=== PATIENT | female | born 1950 | race Caucasian/White ===

== ENCOUNTER 2016-03-09 02:02 | Emergency (ER) | payer MEDICARE, OTHER ==
[~2016-03-09] VITALS: Ht 167.6 cm; Wt 113.4 kg
[~2016-03-09 02:02] MED LIST: AMLO1CAP8 PO; CARV6.252 PO; DONE10TA44 PO; GABA600T2 PO; HYDR-3204 PO; MECL-102 PO; NAPR500T6 PO; TOPI50TA PO; ZOLP10TA2 PO; [UNRECOGNIZED DRUG - CODE] PO
[2016-03-09] MEDS ORDERED: ONDANSETRON HCL/PF 4 MG/2 ML VIAL ONE (02:41)
[2016-03-09] MEDS ORDERED: IV SET PRIMARY 1 EA INFUS.SET MC ONE ×2 (02:42→04:24)
[2016-03-09] MEDS ORDERED: IV NS 0.9% 1,000 ML ONE (02:42)
[2016-03-09] MEDS ORDERED: ONDANSETRON HCL/PF 4 MG/2 ML VIAL IVP ONE (03:00)
[2016-03-09] MEDS ORDERED: IV NS 0.9% 1,000 ML BAG IV ONE (03:00)
[2016-03-09 03:09] LABS: BASOPHILS % (AUTO) 0.4 % (0.0-2.0); DIFF TOTAL % 100 %; EOSINOPHILS % (AUTO) 0.5 % (0.0-6.0); HEMATOCRIT 37 % (33-45); HEMOGLOBIN 12.2 g/dL (11.5-14.8); LYMPHOCYTES # (AUTO) 1.1 /CMM (0.8-4.8); LYMPHOCYTES % (AUTO) 39.1 % (20.0-44.0); MEAN CORPUSCULAR HEMOGLOBIN 28 PG (26.0-33.0); MEAN CORPUSCULAR HGB CONC 33 g/dl (31.0-36.0); MEAN CORPUSCULAR VOLUME 84 fL (82-100); MONOCYTES # (AUTO) 0.3 /CMM (0.1-1.30); MONOCYTES % (AUTO) 11.6 % (2.0-12.0); NEUTROPHILS # (AUTO) 1.4 /CMM (1.8-8.9); NEUTROPHILS % (AUTO) 48.4 % (43.0-81.0); PLATELET COUNT (AUTO) 203 /CMM (150-450); RED BLOOD CELL COUNT(AUTO) 4.38 MIL/uL (4.0-5.2); WHITE BLOOD COUNT (AUTO) 2.9 K/uL (4.3-11.0)
[2016-03-09 03:16] LABS: CALCIUM, SERUM 8.8 mg/dL (8.5-10.1); CREATININE 0.9 mg/dL (0.6-1.3); POTASSIUM 3.8 mmol/L (3.5-5.1)
[2016-03-09 03:22] LABS: ALBUMIN 3.4 g/dL (3.4-5.0); BILIRUBIN,DIRECT 0.1 mg/dL (0.0-0.2); BILIRUBIN,TOTAL 0.3 mg/dL (0.2-1.0); INDIRECT BILIRUBIN 0.2 mg/dL (0.0-1.1); TOTAL PROTEIN, SERUM 7.9 g/dL (6.4-8.2)
[2016-03-09 03:32] LABS: LYMPHOCYTES % (MANUAL) 47 % (16-48); PLATELET ESTIMATE ADEQUATE
[2016-03-09 03:33] LABS: RBC MORPHOLOGY COMMENT NORMAL RBC MORPH
[2016-03-09] MEDS ORDERED: IV NS 0.9% 500 ML IV ONE (04:24)
[2016-03-09 04:26] LABS: KETONES,URINE 2+ (NEGATIVE); LEUKOCYTE ESTERASE ,URINE NEGATIVE (NEGATIVE)
[2016-03-09] MEDS ORDERED: IV NS 0.9% 500 ML BAG IV ONE (04:30)
[2016-03-09 04:34] LABS: ADD UA MICROSCOPIC YES
[2016-03-09 04:37] VITALS: BP 133/75
[2016-03-09 04:39] LABS: ADD URINE CULTURE NO; RBC,URINE 0-2 /HPF (0-2); WBC,URINE 0-2 /HPF (0-3)
== END 2016-03-09 05:15 | disposition home or self-care (01) ==
LOC: ER 02:05
DX: R11.2 Nausea with vomiting, unspecified (principal); I10 Essential (primary) hypertension; I48.91 Unspecified atrial fibrillation
CPT/HCPCS: 36415; 80048; 80076; 81001; 85025; 96361; 96374; 99284; A4606; J2405; J7030; J7040; 81000-TC; Z7610

== ENCOUNTER 2017-06-09 00:06 | Emergency (ER) | payer MEDICARE, OTHER ==
[~2017-06-09] VITALS: Ht 167.6 cm; Wt 89.8 kg
[~2017-06-09 00:06] MED LIST changes: +RANI-551 PO; -TOPI50TA PO; +TOPI50TA24 PO; -[UNRECOGNIZED DRUG - CODE] PO
--- NOTE | 2017-06-09 00:18 | NUR ---
PT TO ER BED 8. BIBFAMILT C/O CP WITH SOB X 2 HOURS. PT PLACED IN GOWN AND ON FLOWER STRIPPER. VSS/RESP EVEN UNLABORED/NAD NOTED/SKIN WARM AND DRY/DENIES N-V-D/AFEBRILE/AOX4. MD AT BEDSIDE FOR EVAL.
--- NOTE | 2017-06-09 00:19 | NUR ---
EMT AT BEDSIDE FOR EKG.
[2017-06-09] MEDS ORDERED: FAMOTIDINE (20 MG) 20 MG TABLET PO ONE (00:30)
[2017-06-09] MEDS ORDERED: DICYCLOMINE HCL 10 MG CAPSULE PO ONE ×2 (00:30→00:47)
[2017-06-09] MEDS ORDERED: NITROGLYCERIN PACKET 1 GM PACKET TD ONE (00:30)
[2017-06-09] MEDS ORDERED: ASPIRIN 81 MG TAB.CHEW PO ONE (00:30)
[2017-06-09] MEDS ORDERED: LIDOCAINE VISCOUS 2% UD 15 ML UDC MM ONE (00:30)
[2017-06-09] MEDS ORDERED: MAG HYDROX/AL HYDROX/SIMETH 30 ML UDC PO ONE (00:30)
[2017-06-09] MEDS ORDERED: NITROGLYCERIN 0.4 MG/TAB BOTTLE SL ONE (00:30)
[2017-06-09] MEDS ORDERED: NITROGLYCERIN 0.4 MG/TAB BOTTLE ONE (00:31)
--- NOTE | 2017-06-09 00:43 | NUR ---
18G IV X 1 ATTEMPT TO R WRIST USING ASEPTIC TECH, BLOOD HANDED OVER TO THE LAB AT THE BEDSIDE. IV FLUSHES EASILY WITH NS, NO S/S INFILTRATION.
[2017-06-09 00:45] LABS: BASOPHILS % (AUTO) 0.7 % (0.0-2.0); EOSINOPHILS % (AUTO) 2.1 % (0.0-6.0); HEMATOCRIT 32 % (33-45); LYMPHOCYTES # (AUTO) 2.4 /CMM (0.8-4.8); LYMPHOCYTES % (AUTO) 39.3 % (20.0-44.0); MEAN CORPUSCULAR HGB CONC 34 g/dl (31.0-36.0); MEAN CORPUSCULAR VOLUME 84 fL (82-100); MONOCYTES # (AUTO) 0.6 /CMM (0.1-1.30); MONOCYTES % (AUTO) 10.1 % (2.0-12.0); NEUTROPHILS % (AUTO) 47.8 % (43.0-81.0); PLATELET COUNT (AUTO) 253 /CMM (150-450); RDW COEFFICIENT OF VARIATION 14.3 (11.5-15.0); RED BLOOD CELL COUNT(AUTO) 3.79 MIL/uL (4.0-5.2); WHITE BLOOD COUNT (AUTO) 6.2 K/uL (4.3-11.0)
[2017-06-09] MEDS ORDERED: FAMOTIDINE (20 MG) 20 MG TABLET ONE (00:47)
[2017-06-09] MEDS ORDERED: MAG HYDROX/AL HYDROX/SIMETH 30 ML UDC ONE (00:47)
[2017-06-09] MEDS ORDERED: LIDOCAINE VISCOUS 2% UD 15 ML UDC ONE (00:47)
[2017-06-09] MEDS ORDERED: NITROGLYCERIN PACKET 1 GM PACKET ONE (00:48)
[2017-06-09] MEDS ORDERED: ASPIRIN 81 MG TAB.CHEW ONE (00:48)
[2017-06-09 00:58] LABS: CALCIUM, SERUM 8.8 mg/dL (8.5-10.1); CARBON DIOXIDE 23 mmol/L (21-32); CHLORIDE 106 mmol/L (98-107); CREATININE 0.9 mg/dL (0.6-1.3); GLUCOSE 124 mg/dL (74-106); POTASSIUM 3.2 mmol/L (3.5-5.1); SODIUM SERUM 141 mmol/L (136-145); UREA NITROGEN, BLOOD 20 mg/dL (7-18)
[2017-06-09 01:01] LABS: D-DIMER 1.23 mg/L(FEU (0.17-0.50); INR 1.01 (0.87-1.13)
[2017-06-09 01:05] LABS: TROPONIN I < 0.017 ng/mL (0.00-0.056)
[2017-06-09 01:12] LABS: ALANINE AMINOTRANSFERASE 26 U/L (12-78); ALBUMIN 3.2 g/dL (3.4-5.0); ALKALINE PHOSPHATASE 61 U/L (46-116); ASPARTATE AMINOTRANSFERASE 19 U/L (15-37); B-TYPE NATRIURETIC PEPTIDE 112 PG/ML (0-125); BILIRUBIN,DIRECT 0.1 mg/dL (0.0-0.2); BILIRUBIN,TOTAL 0.4 mg/dL (0.2-1.0)
--- NOTE | 2017-06-09 01:30 | NUR ---
FAMILY AT BEDSIDE SPEAKING WITH PATIENT. VSS.
[2017-06-09] MEDS ORDERED: ALPRAZOLAM 0.25 MG TABLET PO ONE (02:00)
[2017-06-09] MEDS ORDERED: POTASSIUM CHLORIDE 20 MEQ TAB.PRT.SR PO ONE ×2 (02:00→02:50)
[2017-06-09] MEDS ORDERED: CT SWABBABLE VALVE TRANS SET 1 EA INFUS.SET MC ONE (02:18)
[2017-06-09] MEDS ORDERED: IOHEXOL-350 100 ML VIAL IV ONE (02:18)
[2017-06-09] MEDS ORDERED: IV NS 0.9% 250 ML IV ONE (02:19)
[2017-06-09] MEDS ORDERED: ALPRAZOLAM 0.25 MG TABLET ONE (02:50)
[2017-06-09] MEDS ORDERED: POTASSIUM CHLORIDE 10 MEQ TABLET.SA ONE (02:50)
--- NOTE | 2017-06-09 03:01 | NUR ---
MEDICATED PER MD ORDERS. SON AT BEDSIDE. PT AOX4. VSS.
--- NOTE | 2017-06-09 03:11 | NUR ---
DR SCHWARTZ PAGED PER DR CLEMONS.
[2017-06-09] MEDS ORDERED: HEPARIN SODIUM, PORCINE 5000 UNITS/1 ML VIAL ONE (03:16)
--- NOTE | 2017-06-09 03:26 | NUR ---
Dr koehler paged per dr rondon. Message left.
[2017-06-09] MEDS ORDERED: HEPARIN SODIUM, PORCINE 5000 UNITS/1 ML VIAL IV ONE (03:30)
--- NOTE | 2017-06-09 03:51 | NUR ---
FAMILY AT BEDSIDE. PT RESTING QUIETLY, AROUSES EASILY TO VOICE. VSS.
--- NOTE | 2017-06-09 03:57 | NUR ---
[facility] BED 102
--- NOTE | 2017-06-09 04:33 | NUR ---
Note pamanthony in ED - 06/09/17 at 0434 by SHOBHA Patient does not wish to proceed with medical care recommended by ( ). Patient given information related to possible complications, up to and including , which could occur as a result of leaving the hospital at this time. Patient verbalizes understanding of risks involved due to leaving against medical advice. Patient has signed AMA form.
--- NOTE | 2017-06-09 04:34 | NUR ---
IV removed. Catheter intact and site benign. Pressure and 4x4 applied to site. No bleeding noted. Patient discharged with family to home in stable condition. Written and verbal after care instructions given, instructed not to drive. Patient verbalizes understanding of instruction.
--- NOTE | 2017-06-09 04:34 | NUR ---
Patient does not wish to proceed with medical care recommended by Dr. Soto. Patient given information related to possible complications, up to and including , which could occur as a result of leaving the hospital at this time. Patient verbalizes understanding of risks involved due to leaving against medical advice. Patient has signed AMA form.
[2017-06-09 04:36] VITALS: BP 115/54
== END 2017-06-09 04:37 | disposition left against medical advice (07) ==
LOC: ER 00:10
DX: I26.99 Other pulmonary embolism without acute cor pulmonale (principal); R07.9 Chest pain, unspecified; E66.9 Obesity, unspecified; I10 Essential (primary) hypertension; F41.9 Anxiety disorder, unspecified
CPT/HCPCS: 36415; 71045-TC; 80048-TC; 80076-TC; 83880; 84484-TC; 85025-TC; 85378-TC; 85730-TC; A4606; J1644; J7050; Q9967; Z7610

== ENCOUNTER 2018-04-07 01:37 | Emergency (ER) | payer MEDICARE, OTHER ==
[~2018-04-07] VITALS: Ht 167.6 cm; Wt 90.7 kg
[~2018-04-07 01:37] MED LIST changes: +GABA600T12 PO; -GABA600T2 PO
[2018-04-07] MEDS ORDERED: LORAZEPAM 1 MG TABLET PO ONE (02:00)
[2018-04-07] MEDS ORDERED: LORAZEPAM 1 MG TABLET ONE (02:01)
--- NOTE | 2018-04-07 02:05 | NUR ---
PT BIB SELF. COMP OF HAVING "LOWER EXTREMITY TINGLING". NO SOB NOTED. NO ACUTE DISTRESS AT THIS TIME. PT AOX4. AMBULATORY W.STEADY GAIT. AWAITING MD CHOW.
[2018-04-07 03:04] VITALS: BP 144/68
== END 2018-04-07 03:04 | disposition home or self-care (01) ==
LOC: ER 01:41
DX: F41.9 Anxiety disorder, unspecified (principal); I48.91 Unspecified atrial fibrillation; I10 Essential (primary) hypertension; E66.9 Obesity, unspecified; Z86.711 Personal history of pulmonary embolism
CPT/HCPCS: 99284; A4606

== ENCOUNTER 2018-05-30 14:31 | Emergency (ER) | payer MEDICARE, OTHER ==
[~2018-05-30] VITALS: Ht 165.1 cm; Wt 81.6 kg
[2018-05-30 15:19] LABS: BASOPHILS % (AUTO) 0.6 % (0.0-2.0); EOSINOPHILS % (AUTO) 2.3 % (0.0-6.0); HEMATOCRIT 38 % (33-45); HEMOGLOBIN 12.6 g/dL (11.5-14.8); LYMPHOCYTES # (AUTO) 1.9 /CMM (0.8-4.8); LYMPHOCYTES % (AUTO) 33.8 % (20.0-44.0); MEAN CORPUSCULAR HGB CONC 34 g/dl (31.0-36.0); MEAN CORPUSCULAR VOLUME 88 fL (82-100); MONOCYTES # (AUTO) 0.4 /CMM (0.1-1.30); MONOCYTES % (AUTO) 6.9 % (2.0-12.0); NEUTROPHILS # (AUTO) 3.2 /CMM (1.8-8.9); NEUTROPHILS % (AUTO) 56.4 % (43.0-81.0); PLATELET COUNT (AUTO) 253 /CMM (150-450); RED BLOOD CELL COUNT(AUTO) 4.27 MIL/uL (4.0-5.2); WHITE BLOOD COUNT (AUTO) 5.7 K/uL (4.3-11.0)
--- NOTE | 2018-05-30 15:19 | NUR ---
PT REC'D TO ER C/O DIZZY FOR 2 DAYS LEFT AC IV STARTED 20G LABS DRAWN SENT TO LAB
[2018-05-30 15:28] LABS: CREATININE 0.9 mg/dL (0.6-1.3); POTASSIUM 4.1 mmol/L (3.5-5.1)
--- NOTE | 2018-05-30 15:30 | NUR ---
PT SENT TO CT
[2018-05-30] MEDS ORDERED: ACETAMINOPHEN 325 MG TABLET ONE (15:40)
[2018-05-30] MEDS ORDERED: MECLIZINE HCL 25 MG TABLET ONE (15:40)
[2018-05-30] MEDS ORDERED: LORAZEPAM INJ 2 MG/ML VIAL ONE (15:42)
[2018-05-30] MEDS: LORAZEPAM INJ 2 MG/ML VIAL IV ONE (15:51)
[2018-05-30] MEDS: IV NS 0.9% 1,000 ML BAG IV ONE (15:52)
[2018-05-30] MEDS: MECLIZINE HCL 12.5 MG TABLET PO ONE (15:52)
[2018-05-30] MEDS: ACETAMINOPHEN 325 MG TABLET PO ONE (15:52)
--- NOTE | 2018-05-30 15:55 | NUR ---
PT BACK FROM CT MONITORS APPLIED MEDS GIVEN PER M,D
--- NOTE | 2018-05-30 16:55 | NUR ---
PT. VERBALIZED UNDERSTANDING OF AFTERCARE INSTRUCTIONS.IV removed. Catheter intact and site benign. Pressure and 4x4 applied to site. No bleeding noted.Patient discharged to home in stable condition. Written and verbal after care instructions given. Patient verbalizes understanding of instruction.
[2018-05-30 17:00] VITALS: BP 135/80
== END 2018-05-30 17:01 | disposition home or self-care (01) ==
LOC: ER 14:34
DX: S20.212A Contusion of left front wall of thorax, initial encounter (principal); S09.8XXA Other specified injuries of head, initial encounter; H81.399 Other peripheral vertigo, unspecified ear; R51 Headache; R11.0 Nausea; I10 Essential (primary) hypertension; F41.9 Anxiety disorder, unspecified; E66.9 Obesity, unspecified; W18.09XA Striking against other object with subsequent fall, initial encounter; Y93.01 Activity, walking, marching and hiking; Y92.89 Other specified places as the place of occurrence of the external cause; Y99.8 Other external cause status
CPT/HCPCS: 36415; 70450; 71045; 80048; 85025; 93005; 96361; 96374; 99284; J2060; J7030; J8597

== ENCOUNTER 2018-07-27 16:40 | Emergency (ER) | payer MEDICARE, OTHER ==
[~2018-07-27] VITALS: Ht 165.1 cm; Wt 81.6 kg
--- NOTE | 2018-07-27 17:00 | NUR ---
patient came to the ER BIB grand daughter who c/o chest pain, sharp like, radiating to left shoulder and left arm. On room air, breathing evenly and unlabored. Connected to the monitor and pulse ox. kept comfortable, will continue to monitor accordingly.
[2018-07-27] MEDS ORDERED: AMIO200T4 PO (17:13)
[2018-07-27 17:44] LABS: BASOPHILS % (AUTO) 0.3 % (0.0-2.0); EOSINOPHILS % (AUTO) 1.3 % (0.0-6.0); HEMATOCRIT 41 % (33-45); HEMOGLOBIN 14.2 g/dL (11.5-14.8); LYMPHOCYTES % (AUTO) 38.7 % (20.0-44.0); MEAN CORPUSCULAR HGB CONC 35 g/dl (31.0-36.0); MEAN CORPUSCULAR VOLUME 93 fL (82-100); MONOCYTES # (AUTO) 0.6 /CMM (0.1-1.30); MONOCYTES % (AUTO) 7.4 % (2.0-12.0); NEUTROPHILS % (AUTO) 52.3 % (43.0-81.0); PLATELET COUNT (AUTO) 199 /CMM (150-450); RED BLOOD CELL COUNT(AUTO) 4.42 MIL/uL (4.0-5.2); WHITE BLOOD COUNT (AUTO) 7.7 K/uL (4.3-11.0)
[2018-07-27 17:51] LABS: CALCIUM, SERUM 9.6 mg/dL (8.5-10.1); CARBON DIOXIDE 27 mmol/L (21-32); CHLORIDE 107 mmol/L (98-107); GLUCOSE 100 mg/dL (74-106); POTASSIUM 4.2 mmol/L (3.5-5.1); SODIUM SERUM 145 mmol/L (136-145); UREA NITROGEN, BLOOD 25 mg/dL (7-18)
[2018-07-27 18:04] LABS: B-TYPE NATRIURETIC PEPTIDE 149 PG/ML (0-125)
--- NOTE | 2018-07-27 19:19 | NUR ---
report given to yelena HENLEY for estela.
--- NOTE | 2018-07-27 19:24 | NUR ---
LAYING DOWN IN BED . FAMILY AT THE BED SIDE. REPORTED FEELING BETTER. ON CONT. MONITORING. VSS
--- NOTE | 2018-07-27 20:14 | NUR ---
Patient discharged to home in stable condition. Written and verbal after care instructions given. Patient/ family verbalizes understanding of instruction.
[2018-07-27 20:32] VITALS: BP 123/73
== END 2018-07-27 20:33 | disposition home or self-care (01) ==
LOC: ER 16:50
DX: R07.89 Other chest pain (principal); I10 Essential (primary) hypertension; I48.91 Unspecified atrial fibrillation; F41.9 Anxiety disorder, unspecified; E66.9 Obesity, unspecified
CPT/HCPCS: 36415; 71045-TC; 80048-TC; 83880; 84484-TC; 85025-TC; 85730-TC

== ENCOUNTER 2018-11-20 08:44 | Emergency (ER) | payer MEDICARE, OTHER ==
[~2018-11-20] VITALS: Ht 165.1 cm; Wt 88.0 kg
[~2018-11-20 08:44] MED LIST changes: +AMIO200T4 PO; -AMLO1CAP8 PO; +AMLO1CAP92 PO; -CARV6.252 PO; -RANI-551 PO; -TOPI50TA24 PO
--- NOTE | 2018-11-20 08:58 | NUR ---
PT AMBULATORY TO ER BED 09. C/O R SIDED CHEST PAIN R/T RUE, UPPER BACK AND JAW AREA X 1 MONTH, WORSENING. GOWNED AND PLACED ON MONITOR. VSS. AWAITING MD CHOW.
[2018-11-20] MEDS ORDERED: ASPIRIN 325 MG TABLET PO ONE (09:00)
--- NOTE | 2018-11-20 09:01 | NUR ---
DR PLASCENCIA AT BEDSIDE FOR EVAL.
[2018-11-20] MEDS ORDERED: ASPIRIN 325 MG TABLET ONE (09:04)
--- NOTE | 2018-11-20 09:04 | NUR ---
IV LINE STARTED, ,BLOOD DRAWN AND SENT TO LAB.
[2018-11-20 09:12] LABS: BASOPHILS % (AUTO) 0.7 % (0.0-2.0); EOSINOPHILS % (AUTO) 3.2 % (0.0-6.0); HEMATOCRIT 38 % (33-45); HEMOGLOBIN 12.9 g/dL (11.5-14.8); LYMPHOCYTES # (AUTO) 1.9 /CMM (0.8-4.8); LYMPHOCYTES % (AUTO) 32.3 % (20.0-44.0); MEAN CORPUSCULAR HGB CONC 34 g/dl (31.0-36.0); MEAN CORPUSCULAR VOLUME 87 fL (82-100); MONOCYTES # (AUTO) 0.6 /CMM (0.1-1.30); MONOCYTES % (AUTO) 9.9 % (2.0-12.0); NEUTROPHILS # (AUTO) 3.2 /CMM (1.8-8.9); NEUTROPHILS % (AUTO) 53.9 % (43.0-81.0); PLATELET COUNT (AUTO) 236 /CMM (150-450); RED BLOOD CELL COUNT(AUTO) 4.35 MIL/uL (4.0-5.2); WHITE BLOOD COUNT (AUTO) 5.8 K/uL (4.3-11.0)
[2018-11-20 09:22] LABS: CALCIUM, SERUM 8.9 mg/dL (8.5-10.1); CARBON DIOXIDE 27 mmol/L (21-32); CHLORIDE 105 mmol/L (98-107); CREATININE 0.9 mg/dL (0.6-1.3); GLUCOSE 146 mg/dL (74-106); POTASSIUM 3.9 mmol/L (3.5-5.1); SODIUM SERUM 139 mmol/L (136-145); UREA NITROGEN, BLOOD 18 mg/dL (7-18)
[2018-11-20 09:40] LABS: D-DIMER 0.44 mg/L(FEU (0.17-0.50)
--- NOTE | 2018-11-20 10:30 | NUR ---
Patient discharged to home in stable condition. Written and verbal after care instructions given. Patient verbalizes understanding of instruction.IV removed. Catheter intact and site benign. Pressure and 4x4 applied to site. No bleeding noted.
[2018-11-20 10:48] VITALS: BP 136/88
== END 2018-11-20 10:49 | disposition home or self-care (01) ==
LOC: ER 08:50
DX: R07.89 Other chest pain (principal); I10 Essential (primary) hypertension; I48.91 Unspecified atrial fibrillation; F41.9 Anxiety disorder, unspecified; E66.9 Obesity, unspecified; Z68.32 Body mass index [BMI] 32.0-32.9, adult
CPT/HCPCS: 36415; 71045-TC; 80048-TC; 84484-TC; 85025-TC; 85378-TC; 85730-TC

== ENCOUNTER 2019-01-05 12:07 | Emergency (ER) | payer MEDICARE, OTHER ==
[~2019-01-05] VITALS: Ht 165.1 cm; Wt 88.0 kg
--- NOTE | 2019-01-05 12:24 | NUR ---
"MAYNOR, FROM HOME, C/O CHEST PAIN x 2 MONTHS, RADIATING TO TO UPPER BACK" PT AAOX4, -SOB, NAD NOTED, VSS, PENDING MD CHOW
[2019-01-05] MEDS ORDERED: HYDROCODONE/APAP 5/325MG 1 EACH TABLET PO ONE (12:30)
[2019-01-05 12:46] LABS: BASOPHILS # (AUTO) 0.1 /CMM (0.0-0.2); BASOPHILS % (AUTO) 0.8 % (0.0-2.0); EOSINOPHILS % (AUTO) 2.5 % (0.0-6.0); HEMATOCRIT 40 % (33-45); HEMOGLOBIN 13.1 g/dL (11.5-14.8); LYMPHOCYTES # (AUTO) 1.7 /CMM (0.8-4.8); LYMPHOCYTES % (AUTO) 27.4 % (20.0-44.0); MEAN CORPUSCULAR HGB CONC 33 g/dl (31.0-36.0); MEAN CORPUSCULAR VOLUME 87 fL (82-100); MONOCYTES # (AUTO) 0.4 /CMM (0.1-1.30); MONOCYTES % (AUTO) 7.2 % (2.0-12.0); NEUTROPHILS # (AUTO) 3.7 /CMM (1.8-8.9); NEUTROPHILS % (AUTO) 62.1 % (43.0-81.0); PLATELET COUNT (AUTO) 270 /CMM (150-450); RED BLOOD CELL COUNT(AUTO) 4.53 MIL/uL (4.0-5.2)
[2019-01-05 12:55] LABS: CALCIUM, SERUM 9.3 mg/dL (8.5-10.1); CARBON DIOXIDE 25 mmol/L (21-32); CHLORIDE 105 mmol/L (98-107); CREATININE 0.8 mg/dL (0.6-1.3); GLUCOSE 131 mg/dL (74-106); POTASSIUM 3.9 mmol/L (3.5-5.1); SODIUM SERUM 140 mmol/L (136-145); UREA NITROGEN, BLOOD 11 mg/dL (7-18)
[2019-01-05 13:29] VITALS: BP 122/85
--- NOTE | 2019-01-05 13:29 | NUR ---
Patient discharged to home in stable condition. Written and verbal after care instructions given. Patient verbalizes understanding of instruction. IV removed. Catheter intact and site benign. Pressure and 4x4 applied to site. No bleeding noted.
[2019-01-05] MEDS ORDERED: CETI-467 PO (16:00)
[2019-01-05] MEDS ORDERED: CARV6.252 PO (16:00)
[2019-01-05] MEDS ORDERED: MELO-107 PO (16:00)
[2019-01-05] MEDS ORDERED: GABA-534 PO (16:00)
[2019-01-05] MEDS ORDERED: ERGO500040 PO (16:00)
[2019-01-05] MEDS ORDERED: MAGN400T26 PO (16:00)
[2019-01-05] MEDS ORDERED: HYDR-4354 PO (16:00)
[2019-01-06] MEDS ORDERED: METOPROLOL TARTRATE INJ 5 MG/5 ML AMPUL ONE (14:10)
[2019-01-07] MEDS ORDERED: MAGN400T26 PO (09:56)
[2019-01-07] MEDS ORDERED: LORA2VIA11 IV (09:56)
[2019-01-07] MEDS ORDERED: ATOR10TA PO (09:56)
[2019-01-07] MEDS ORDERED: ASPI-1169 PO (09:56)
[2019-01-07] MEDS ORDERED: GABA300C PO (09:56)
[2019-01-07] MEDS ORDERED: Nitroglycerin SL (09:56)
[2019-01-07] MEDS ORDERED: AMIO200T7 PO (09:56)
[2019-01-07] MEDS ORDERED: CETI10TA14 PO (09:56)
[2019-01-07] MEDS ORDERED: ACET-2605 PO (09:56)
[2019-01-07] MEDS ORDERED: BENA10TA11 PO (09:56)
[2019-01-07] MEDS ORDERED: CARV6.252 PO (09:56)
[2019-01-07] MEDS ORDERED: AMLO5TAB9 PO (09:56)
[2019-01-07] MEDS ORDERED: ZOLP10TA2 PO (09:56)
== END 2019-01-05 13:30 | disposition home or self-care (01) ==
LOC: ER 12:07
DX: R07.89 Other chest pain (principal); I10 Essential (primary) hypertension; I48.91 Unspecified atrial fibrillation; F41.9 Anxiety disorder, unspecified; Z79.899 Other long term (current) drug therapy
CPT/HCPCS: 36415; 80048-TC; 84484-TC; 85025-TC; J3490

== ENCOUNTER 2019-01-05 15:03 | Inpatient (IN) | payer MEDICARE, OTHER ==
[~2019-01-05] VITALS: Ht 165.1 cm; Wt 96.2 kg
--- NOTE | 2019-01-05 15:16 | NUR ---
"[id number], C/O NAUSEA VOMITING AND DIZZINESS" PT AAOX4, -SOB, NAD NOTED, VSS, PENDING MD CHOW
[2019-01-05] MEDS ORDERED: ONDANSETRON HCL/PF 4 MG/2 ML VIAL IVP ONE (15:30)
[2019-01-05] MEDS ORDERED: IV NS 0.9% 500 ML BAG IV ONE (15:30)
--- NOTE | 2019-01-05 15:35 | NUR ---
PAGED DR. SCHWARTZ.
[2019-01-05] MEDS ORDERED: ONDANSETRON HCL/PF 4 MG/2 ML VIAL ONE (15:45)
--- NOTE | 2019-01-05 15:50 | NUR ---
CALLED NURSING SUP FOR BED.
[2019-01-05 15:59] LABS: BASOPHILS # (AUTO) 0.1 /CMM (0.0-0.2); EOSINOPHILS % (AUTO) 1.8 % (0.0-6.0); HEMATOCRIT 37 % (33-45); HEMOGLOBIN 12.5 g/dL (11.5-14.8); LYMPHOCYTES # (AUTO) 1.5 /CMM (0.8-4.8); MEAN CORPUSCULAR HGB CONC 33 g/dl (31.0-36.0); MEAN CORPUSCULAR VOLUME 87 fL (82-100); MONOCYTES # (AUTO) 0.5 /CMM (0.1-1.30); MONOCYTES % (AUTO) 7.5 % (2.0-12.0); NEUTROPHILS # (AUTO) 4.4 /CMM (1.8-8.9); NEUTROPHILS % (AUTO) 66.7 % (43.0-81.0); PLATELET COUNT (AUTO) 253 /CMM (150-450); RED BLOOD CELL COUNT(AUTO) 4.31 MIL/uL (4.0-5.2); WHITE BLOOD COUNT (AUTO) 6.5 K/uL (4.3-11.0)
[2019-01-05] MEDS ORDERED: ERGO500040 PO (16:00)
[2019-01-05] MEDS ORDERED: CARV6.252 PO (16:00)
[2019-01-05] MEDS ORDERED: CETI-467 PO (16:00)
[2019-01-05] MEDS ORDERED: MELO-107 PO (16:00)
[2019-01-05] MEDS ORDERED: MAGN400T26 PO (16:00)
[2019-01-05] MEDS ORDERED: GABA-534 PO (16:00)
[2019-01-05] MEDS ORDERED: HYDR-4354 PO (16:00)
--- NOTE | 2019-01-05 16:02 | NUR ---
NURSING SUP GAVE BED 312-1 NURSE NAME SONY.
[2019-01-05 16:08] LABS: CALCIUM, SERUM 9.4 mg/dL (8.5-10.1); CARBON DIOXIDE 23 mmol/L (21-32); CHLORIDE 104 mmol/L (98-107); CREATININE 0.9 mg/dL (0.6-1.3); GLUCOSE 165 mg/dL (74-106); POTASSIUM 3.8 mmol/L (3.5-5.1); SODIUM SERUM 139 mmol/L (136-145); UREA NITROGEN, BLOOD 11 mg/dL (7-18)
--- NOTE | 2019-01-05 16:10 | NUR ---
REPORT GIVEN TO SONY RN FOR LEONORA PT WILL BE TRANSPORTED TO 3RD FLOOR VIA ACLS PROTOCOL
[2019-01-05 16:11] LABS: ALANINE AMINOTRANSFERASE 18 U/L (12-78); ALBUMIN 3.6 g/dL (3.4-5.0); ALKALINE PHOSPHATASE 68 U/L (46-116); ASPARTATE AMINOTRANSFERASE 16 U/L (15-37); BILIRUBIN,DIRECT 0.1 mg/dL (0.0-0.2); BILIRUBIN,TOTAL 0.5 mg/dL (0.2-1.0); LIPASE 72 U/L (73-393); TOTAL PROTEIN, SERUM 7.5 g/dL (6.4-8.2)
[2019-01-05] MEDS ORDERED: METOCLOPRAMIDE HCL 10 MG/2 ML VIAL IV PRN (16:30)
--- NOTE | 2019-01-05 16:55 | NUR ---
PT TRANSPORTED TO 3RD FLOOR
--- NOTE | 2019-01-05 17:00 | NUR ---
ms rn received a new admission from er w/ dx chest pain, awake alert oriented x4,patient complaining of nausea,will monitor patient's condition.
[2019-01-05 17:02] VITALS: BP 156/87
[2019-01-05] MEDS ORDERED: ZOLPIDEM TARTRATE 10 MG TABLET PO PRN (18:00)
[2019-01-05] MEDS ORDERED: cetrizine 10 MG TABLET PO PRN (18:00)
[2019-01-05] MEDS ORDERED: HYDROCODONE/APAP 10/325MG 1 EA TABLET PO PRN (18:00)
--- NOTE | 2019-01-05 18:00 | NUR ---
ms rn called dr. koehler for order and carried out.
[2019-01-05] MEDS ORDERED: ACETAMINOPHEN ES 500 MG TABLET PO PRN (18:30)
[2019-01-05] MEDS ORDERED: NITROGLYCERIN 0.4 MG/TAB BOTTLE SL PRN (18:30)
[2019-01-05] MEDS ORDERED: ONDANSETRON HCL/PF 4 MG/2 ML VIAL IVP PRN (18:30)
[2019-01-05] MEDS ORDERED: LORAZEPAM INJ 2 MG/ML VIAL IV PRN (18:30)
--- NOTE | 2019-01-05 18:38 | NUR ---
ms rn sleeping at this time,all needs attended.
--- NOTE | 2019-01-05 19:45 | NUR ---
RN NOTES RECEIVED PATIENT AWAKE, RESTING COMFORTABLY IN BED, DENIES ANY PAIN, EATING AT THIS TIME, FAMILY MEMBERS AT BEDSIDE, NO SIGNS OF ACUTE RESPIRATORY DISTRESS NOTED. IV ACCESS INTACT AND PATENT, SAFETY MEASURES IN PLACED, CALL LIGHT WITH IN EASY REACH, ASPIRATION PRECAUTION EMPHASIZED, WILL CONTINUE TO MONITOR ACCORDINGLY.
[2019-01-05 19:53] VITALS: BP 144/73
[2019-01-05 20:50] VITALS: BP 144/73
[2019-01-05] MEDS: ENOXAPARIN SODIUM 60 MG/0.6 ML DISP.SYRIN SQ SCH (21:22)
[2019-01-05] MEDS: ATORVASTATIN 10 MG TABLET PO SCH (21:23)
[2019-01-06] VITALS (8 sets, daily range): BP systolic 89–142; BP diastolic 48–82
[2019-01-06 07:07] LABS: BASOPHILS # (AUTO) 0.1 /CMM (0.0-0.2); BASOPHILS % (AUTO) 0.9 % (0.0-2.0); EOSINOPHILS % (AUTO) 2.1 % (0.0-6.0); HEMATOCRIT 38 % (33-45); HEMOGLOBIN 12.3 g/dL (11.5-14.8); LYMPHOCYTES # (AUTO) 2.3 /CMM (0.8-4.8); LYMPHOCYTES % (AUTO) 29.4 % (20.0-44.0); MEAN CORPUSCULAR HGB CONC 33 g/dl (31.0-36.0); MEAN CORPUSCULAR VOLUME 86 fL (82-100); MONOCYTES # (AUTO) 0.6 /CMM (0.1-1.30); NEUTROPHILS # (AUTO) 4.7 /CMM (1.8-8.9); NEUTROPHILS % (AUTO) 59.6 % (43.0-81.0); PLATELET COUNT (AUTO) 273 /CMM (150-450); RED BLOOD CELL COUNT(AUTO) 4.35 MIL/uL (4.0-5.2); WHITE BLOOD COUNT (AUTO) 7.8 K/uL (4.3-11.0)
[2019-01-06 07:23] LABS: CALCIUM, SERUM 8.9 mg/dL (8.5-10.1); CREATININE 1.1 mg/dL (0.6-1.3); MAGNESIUM 2.3 mg/dL (1.8-2.4); POTASSIUM 3.8 mmol/L (3.5-5.1)
--- NOTE | 2019-01-06 07:29 | NUR ---
RN NOTES ALL NEEDS ATTENDED AND MET. ABLE TO REST AND SLEPT AT INTERVALS. SAFETY MEASURES IN PLACE, ASPIRATION PRECAUTION EMPHASIZED, CALL LIGHT WITHIN EASY REACH. ENDORSED TO AM NURSE FOR CONTINUITY OF CARE.
[2019-01-06 07:32] LABS: CHOLESTEROL 190 mg/dL (<200); HDL CHOLESTEROL 51 mg/dL (40-60); LDL 117 mg/dL (0-99); TRIGLYCERIDES 172 mg/dL (30-150)
[2019-01-06 07:38] LABS: THYROID STIMULATING HORMONE 1.76 uIU/mL (0.358-3.74)
--- NOTE | 2019-01-06 08:10 | NUR ---
ms rn received on bed, awake,alert,oriented x4, not in any form of distress,respirations even and unlabored,no sob noted,lungs are clear,abdomen soft,positive bowel sounds,denies pain at this time.,will monitor patient's condition.
--- NOTE | 2019-01-06 09:00 | NUR ---
ms [place] breakfast served,due meds given,tolerated well.
[2019-01-06 09:36] LABS: C-REACTIVE PROTEIN 0.4 mg/dL (0.0-0.9)
[2019-01-06] MEDS: BENAZEPRIL HCL 10 MG TABLET PO SCH (09:37)
[2019-01-06] MEDS: CARVEDILOL 6.25 MG TABLET PO SCH ×2 (09:38→18:06)
[2019-01-06] MEDS: ASPIRIN 81 MG TAB.CHEW PO SCH (09:38)
[2019-01-06] MEDS: GABAPENTIN 300 MG CAPSULE PO SCH ×3 (09:39→18:06)
[2019-01-06] MEDS: MAGNESIUM OXIDE 400 MG TABLET PO SCH (09:39)
[2019-01-06] MEDS: AMIODARONE HCL 200 MG TABLET PO SCH (09:39)
[2019-01-06] MEDS: AMLODIPINE BESYLATE 5 MG TABLET PO SCH (09:39)
[2019-01-06] MEDS: ENOXAPARIN SODIUM 60 MG/0.6 ML DISP.SYRIN SQ SCH (09:41)
--- NOTE | 2019-01-06 11:00 | NUR ---
ms rn was seen by heart doctor w/ orders made and carried out.
[2019-01-06] MEDS ORDERED: IOHEXOL-350 100 ML VIAL IV ONE ×2 (11:58→13:44)
[2019-01-06] MEDS ORDERED: CT SWABBABLE VALVE TRANS SET 1 EA INFUS.SET MC ONE ×2 (11:59→13:44)
[2019-01-06] MEDS ORDERED: IV NS 0.9% 250 ML IV ONE ×2 (11:59→13:44)
--- NOTE | 2019-01-06 13:30 | NUR ---
ms rn went down for cta.
[2019-01-06] MEDS ORDERED: NITROGLYCERIN 0.4 MG/TAB BOTTLE ONE (13:49)
[2019-01-06] MEDS ORDERED: METOPROLOL TARTRATE INJ 5 MG/5 ML AMPUL ONE ×2 (13:49→14:21)
[2019-01-06] MEDS: METOPROLOL TARTRATE INJ 5 MG/5 ML AMPUL IVP PRN ×8 (13:51→14:26)
[2019-01-06] MEDS ORDERED: NITROGLYCERIN 0.4 MG/TAB BOTTLE SL ONE (14:00)
--- NOTE | 2019-01-06 19:20 | NUR ---
MS RN ON BED, NO DISTRESS NOTED.
--- NOTE | 2019-01-06 19:25 | NUR ---
CHANGED OF SHIFT REPORT Patient in bed, awake. Sinus rhythm in the Tele monitor, tolerating RA, denies chest pain. Instructed to use call light for assistance, verbalized understanding. Maintained safety.
[2019-01-06] MEDS: ATORVASTATIN 10 MG TABLET PO SCH (21:09)
[2019-01-07 03:43] VITALS: BP 115/71
--- NOTE | 2019-01-07 06:27 | NUR ---
END OF SHIFT REPORT Patient in bed, stable oxygen saturation on RA. Sinus Rhythm [id number] in the Tele monitor. Ambulates independently, no episode of chest pain. Denies nausea, no vomiting. Slept well, no acute events overnight. Maintained safety.
--- NOTE | 2019-01-07 07:15 | NUR ---
MASTER ESTHETICIAN NOTES PATIENT IN BED ALERT ORIENTED X3. NO ACUTE DISTRESS NOTED. NO SOB NOTED. DENIES CHEST PAIN. IV ACCESS PATENT AND INTACT, NO REDNESS OR SWELLING NOTED. SAFETY MEASURES IN PLACE. CALL LIGHT WITHIN REACH. WILL CONTINUE TO MONITOR ACCORDINGLY.
[2019-01-07 08:00] VITALS: BP 117/82
[2019-01-07] MEDS: ASPIRIN 81 MG TAB.CHEW PO SCH (08:43)
[2019-01-07] MEDS: MAGNESIUM OXIDE 400 MG TABLET PO SCH (08:44)
[2019-01-07] MEDS: AMIODARONE HCL 200 MG TABLET PO SCH (08:44)
[2019-01-07] MEDS: AMLODIPINE BESYLATE 5 MG TABLET PO SCH (08:45)
[2019-01-07] MEDS: BENAZEPRIL HCL 10 MG TABLET PO SCH (08:45)
[2019-01-07] MEDS: CARVEDILOL 6.25 MG TABLET PO SCH (08:45)
[2019-01-07] MEDS: GABAPENTIN 300 MG CAPSULE PO SCH ×2 (08:46→13:00)
[2019-01-07] MEDS: ENOXAPARIN SODIUM 60 MG/0.6 ML DISP.SYRIN SQ SCH (08:47)
[2019-01-07 09:46] LABS: BASOPHILS % (AUTO) 0.8 % (0.0-2.0); EOSINOPHILS % (AUTO) 3.2 % (0.0-6.0); HEMATOCRIT 37 % (33-45); HEMOGLOBIN 12.1 g/dL (11.5-14.8); LYMPHOCYTES # (AUTO) 1.3 /CMM (0.8-4.8); LYMPHOCYTES % (AUTO) 25.4 % (20.0-44.0); MEAN CORPUSCULAR HGB CONC 33 g/dl (31.0-36.0); MEAN CORPUSCULAR VOLUME 87 fL (82-100); MONOCYTES # (AUTO) 0.4 /CMM (0.1-1.30); MONOCYTES % (AUTO) 7.2 % (2.0-12.0); NEUTROPHILS # (AUTO) 3.4 /CMM (1.8-8.9); NEUTROPHILS % (AUTO) 63.4 % (43.0-81.0); PLATELET COUNT (AUTO) 253 /CMM (150-450); RED BLOOD CELL COUNT(AUTO) 4.21 MIL/uL (4.0-5.2); WHITE BLOOD COUNT (AUTO) 5.3 K/uL (4.3-11.0)
[2019-01-07] MEDS ORDERED: ZOLP10TA2 PO (09:56)
[2019-01-07] MEDS ORDERED: MAGN400T26 PO (09:56)
[2019-01-07] MEDS ORDERED: Nitroglycerin SL (09:56)
[2019-01-07] MEDS ORDERED: ATOR10TA PO (09:56)
[2019-01-07] MEDS ORDERED: AMIO200T7 PO (09:56)
[2019-01-07] MEDS ORDERED: CARV6.252 PO (09:56)
[2019-01-07] MEDS ORDERED: AMLO5TAB9 PO (09:56)
[2019-01-07] MEDS ORDERED: ACET-2605 PO (09:56)
[2019-01-07] MEDS ORDERED: GABA300C PO (09:56)
[2019-01-07] MEDS ORDERED: BENA10TA11 PO (09:56)
[2019-01-07] MEDS ORDERED: ASPI-1169 PO (09:56)
[2019-01-07] MEDS ORDERED: CETI10TA14 PO (09:56)
[2019-01-07] MEDS ORDERED: LORA2VIA11 IV (09:56)
[2019-01-07 09:58] LABS: CALCIUM, SERUM 8.4 mg/dL (8.5-10.1); CREATININE 1.1 mg/dL (0.6-1.3); MAGNESIUM 2.1 mg/dL (1.8-2.4); POTASSIUM 3.7 mmol/L (3.5-5.1)
[2019-01-07 16:00] VITALS: BP 112/51
[2019-01-07] MEDS ORDERED: SERTRALINE HCL 25 MG TABLET PO SCH (16:00)
--- NOTE | 2019-01-07 16:40 | NUR ---
MS RN NOTES PATIENT DISCHARGE HOME WITH STABLE VITAL SIGNS. NO ACUTE DISTRESS NOTED. BREATHING UNLABORED. NO SOB NOTED. DENIED CHEST PAIN. DISCHARGE INSTRUCTIONS GIVEN TO THE PATIENT INCLUDING FOLLOW UP WITH PRIMARY DOCTOR AND NEW PRESCRIPTION , VERBALIZED UNDERSTANDING. PATIENT ALERT ORIENTED X 3. WHEELED TO THE LOBBY, ASSISTED TO A PRIVATE CAR ACCOMPANIED BY FAMILY IN STABLE CONDITION. SKIN IS INTACT. ALL BELONGINGS ACCOUNTED FOR. IV ACCESS REMOVED, NO BLEEDING . NO REDNESS, NO SWELLING NOTED.
== END 2019-01-07 16:57 | disposition home or self-care (01) | DRG 880 ==
LOC: ER 15:08 → MED 16:08 → TELE 01-06 12:26
PROVIDERS: ADMIT Family Medicine; ATTEND Family Medicine
DX: F41.9 Anxiety disorder, unspecified (principal); F33.1 Major depressive disorder, recurrent, moderate; R11.10 Vomiting, unspecified; I48.0 Paroxysmal atrial fibrillation; I10 Essential (primary) hypertension; G43.909 Migraine, unspecified, not intractable, without status migrainosus; E78.5 Hyperlipidemia, unspecified; G47.00 Insomnia, unspecified; M19.90 Unspecified osteoarthritis, unspecified site; I25.10 Atherosclerotic heart disease of native coronary artery without angina pectoris; E11.9 Type 2 diabetes mellitus without complications; D63.8 Anemia in other chronic diseases classified elsewhere; Z86.73 Personal history of transient ischemic attack (TIA), and cerebral infarction without residual deficits; R32 Unspecified urinary incontinence; F43.10 Post-traumatic stress disorder, unspecified; K59.00 Constipation, unspecified; M42.10 Adult osteochondrosis of spine, site unspecified; F41.0 Panic disorder [episodic paroxysmal anxiety]; S13.9XXA Sprain of joints and ligaments of unspecified parts of neck, initial encounter; X58.XXXA Exposure to other specified factors, initial encounter; Y93.9 Activity, unspecified; Y92.009 Unspecified place in unspecified non-institutional (private) residence as the place of occurrence of the external cause; R10.9 Unspecified abdominal pain; G31.84 Mild cognitive impairment of uncertain or unknown etiology; R53.1 Weakness
CPT/HCPCS: 36415; 70450-TC; 75574; 76700-TC; 80048-TC; 80061-TC; 80076-TC; 82150-TC; 82550-TC; 83540-TC; 83690-TC; 83735-TC; 84443-TC; 84484-TC; 85025-TC; 85610-TC; 85652-TC; 85730-TC; 86140-TC; 87081-TC; 93307-TC; G0378; J1650; J2405; J2765; J3490; J7040; J7050; Q9967

== ENCOUNTER 2021-01-08 08:47 | Emergency (ER) | payer MEDICARE, OTHER ==
[~2021-01-08] VITALS: Ht 165.1 cm; Wt 88.9 kg
[~2021-01-08 08:47] MED LIST changes: +ACET-2605 PO; -AMIO200T4 PO; +AMIO200T5 PO; +AMIO200T7 PO; +AMLO-212 PO; +ASPI-1169 PO; +ATOR10TA PO; +BENA10TA74 PO; +CARV6.252 PO; +CETI-467 PO; +CETI10TA14 PO; -DONE10TA44 PO; +GABA-534 PO; +GABA300C PO; -GABA600T12 PO; -HYDR-3204 PO; +HYDR-4354 PO; +LORA2VIA11 IV; +MAGN400T26 PO; -MECL-102 PO; -NAPR500T6 PO; +Nitroglycerin SL
--- NOTE | 2021-01-08 09:05 | NUR ---
PT CAME TO ER C/O CP PAIN X 1 DAY + PAIN BELOW R BREAST RADIATING TO BACK X 3 DAYS. PAIN IS SHARP, 5/10. ADMITS NAUSEA, VOMITING YESTERDAY. DENIES DIAPHORESIS. A&OX4, SKIN IS WARM AND DRY. PULSES 2+ BILATERALLY, NO MURMURS HEARD. ON MONITOR.
--- NOTE | 2021-01-08 09:21 | NUR ---
RADIOLOGY AT BEDSIDE
[2021-01-08 09:37] LABS: BASOPHILS % (AUTO) 0.6 % (0.0-2.0); HEMATOCRIT 42 % (33-45); HEMOGLOBIN 13.6 g/dL (11.5-14.8); LYMPHOCYTES # (AUTO) 1.8 K/uL (0.8-4.8); LYMPHOCYTES % (AUTO) 24.6 % (20.0-44.0); MEAN CORPUSCULAR HGB CONC 33 g/dl (31.0-36.0); MEAN CORPUSCULAR VOLUME 88 fL (82-100); MONOCYTES # (AUTO) 0.5 K/uL (0.1-1.30); MONOCYTES % (AUTO) 6.9 % (2.0-12.0); NEUTROPHILS # (AUTO) 4.7 K/uL (1.8-8.9); NEUTROPHILS % (AUTO) 63.9 % (43.0-81.0); PLATELET COUNT (AUTO) 263 K/uL (150-450); RED BLOOD CELL COUNT(AUTO) 4.71 MIL/uL (4.0-5.2); WHITE BLOOD COUNT (AUTO) 7.4 K/uL (4.3-11.0)
[2021-01-08 09:49] LABS: CARBON DIOXIDE 26 mmol/L (21-32); CHLORIDE 106 mmol/L (98-107); CREATININE 0.9 mg/dL (0.6-1.3); GLUCOSE 156 mg/dL (74-106); POTASSIUM 3.7 mmol/L (3.5-5.1); SODIUM SERUM 141 mmol/L (136-145); UREA NITROGEN, BLOOD 14 mg/dL (7-18)
[2021-01-08 09:54] LABS: ALANINE AMINOTRANSFERASE 28 U/L (12-78); ALBUMIN 3.6 g/dL (3.4-5.0); ALKALINE PHOSPHATASE 66 U/L (46-116); ASPARTATE AMINOTRANSFERASE 17 U/L (15-37); BILIRUBIN,DIRECT 0.1 mg/dL (0.0-0.2); BILIRUBIN,TOTAL 0.4 mg/dL (0.2-1.0); LIPASE 88 U/L (73-393); TOTAL PROTEIN, SERUM 7.9 g/dL (6.4-8.2)
[2021-01-08 10:01] LABS: BILIRUBIN,URINE SMALL (NEGATIVE); COLOR,URINE YELLOW (YELLOW); LEUKOCYTE ESTERASE ,URINE Negative (NEGATIVE); NITRITE, URINE Negative (NEGATIVE); PH,URINE 5.5 (5.0-8.0); PROTEIN,URINE Negative (NEGATIVE); UGLUCOSE Negative (NEGATIVE); UROBILINOGEN,URINE 0.2 EU/dL (0.2)
--- NOTE | 2021-01-08 10:02 | NUR ---
URINE COLLECTED AND SENT TO THE LAB
[2021-01-08 10:04] LABS: BACTERIA,URINE Rare /HPF (None Seen); SQUAMOUS EPITHELIAL CELL,UR Rare /HPF (None Seen); WBC,URINE 0-2 /HPF (0-3)
[2021-01-08] MEDS ORDERED: TIOT4MIS3 IH (10:31)
[2021-01-08] MEDS ORDERED: DEXL60CA3 PO (10:31)
[2021-01-08] MEDS ORDERED: DONE10TA44 PO (10:31)
[2021-01-08] MEDS ORDERED: LORA10TA7 PO (10:31)
[2021-01-08] MEDS ORDERED: MECL-159 PO (10:31)
[2021-01-08] MEDS ORDERED: NAPR-1009 PO (10:31)
[2021-01-08] MEDS ORDERED: LINA290C PO (10:31)
[2021-01-08] MEDS ORDERED: TOPI25TA49 PO (10:32)
--- NOTE | 2021-01-08 10:32 | NUR ---
PT LAYING IN BED COMFORTABLY. CONTINUING TO MONITOR
[2021-01-08 11:12] VITALS: BP 147/55
--- NOTE | 2021-01-08 11:12 | NUR ---
IV removed. Catheter intact and site benign. Pressure and 4x4 applied to site. No bleeding noted.
--- NOTE | 2021-01-08 11:12 | NUR ---
Patient discharged to home in stable condition. Written and verbal after care instructions given. Patient verbalizes understanding of instruction.
== END 2021-01-08 11:12 | disposition home or self-care (01) ==
LOC: ER 08:51
DX: R10.11 Right upper quadrant pain (principal); I10 Essential (primary) hypertension; E66.9 Obesity, unspecified; Z68.32 Body mass index [BMI] 32.0-32.9, adult; Z79.899 Other long term (current) drug therapy
CPT/HCPCS: 36415; 71045-TC; 76705-TC; 80048-TC; 80076-TC; 81001; 83690-TC; 84484-TC; 85025-TC

== ENCOUNTER 2021-04-14 08:00 | Emergency (ER) | payer MEDICARE, OTHER ==
[~2021-04-14] VITALS: Ht 170.2 cm; Wt 68.0 kg
[~2021-04-14 08:00] MED LIST changes: -ACET-2605 PO; -AMIO200T7 PO; -AMLO-212 PO; -ASPI-1169 PO; -ATOR10TA PO; -BENA10TA74 PO; -CETI-467 PO; -CETI10TA14 PO; +DEXL60CA3 PO; +DONE10TA44 PO; -GABA300C PO; +LINA290C PO; +LORA10TA7 PO; -LORA2VIA11 IV; +MECL-159 PO; +NAPR-1009 PO; -Nitroglycerin SL; +TIOT4MIS3 IH; +TOPI25TA49 PO
[2021-04-14 08:44] LABS: BASOPHILS # (AUTO) 0.1 K/uL (0.0-0.2); EOSINOPHILS % (AUTO) 3.1 % (0.0-6.0); HEMATOCRIT 38 % (33-45); HEMOGLOBIN 12.5 g/dL (11.5-14.8); LYMPHOCYTES # (AUTO) 1.9 K/uL (0.8-4.8); LYMPHOCYTES % (AUTO) 30.1 % (20.0-44.0); MEAN CORPUSCULAR HGB CONC 33 g/dl (31.0-36.0); MEAN CORPUSCULAR VOLUME 90 fL (82-100); MONOCYTES # (AUTO) 0.5 K/uL (0.1-1.30); NEUTROPHILS # (AUTO) 3.7 K/uL (1.8-8.9); NEUTROPHILS % (AUTO) 57.8 % (43.0-81.0); PLATELET COUNT (AUTO) 232 K/uL (150-450); RED BLOOD CELL COUNT(AUTO) 4.16 MIL/uL (4.0-5.2); WHITE BLOOD COUNT (AUTO) 6.3 K/uL (4.3-11.0)
[2021-04-14] MEDS ORDERED: ONDANSETRON HCL/PF 4 MG/2 ML VIAL ONE (08:58)
[2021-04-14 08:59] LABS: CALCIUM, SERUM 9.2 mg/dL (8.5-10.1); CARBON DIOXIDE 24 mmol/L (21-32); CHLORIDE 107 mmol/L (98-107); CREATININE 0.8 mg/dL (0.6-1.3); GLUCOSE 149 mg/dL (74-106); POTASSIUM 3.5 mmol/L (3.5-5.1); SODIUM SERUM 140 mmol/L (136-145); UREA NITROGEN, BLOOD 16 mg/dL (7-18)
[2021-04-14] MEDS ORDERED: ONDANSETRON HCL/PF 4 MG/2 ML VIAL IVP ONE (09:00)
[2021-04-14] MEDS ORDERED: IV NS 0.9% 500 ML BAG IV ONE (09:00)
[2021-04-14 09:07] LABS: ALANINE AMINOTRANSFERASE 24 U/L (12-78); ALBUMIN 3.3 g/dL (3.4-5.0); ALKALINE PHOSPHATASE 55 U/L (46-116); ASPARTATE AMINOTRANSFERASE 14 U/L (15-37); BILIRUBIN,DIRECT 0.1 mg/dL (0.0-0.2); BILIRUBIN,TOTAL 0.4 mg/dL (0.2-1.0); LIPASE 51 U/L (73-393); TOTAL PROTEIN, SERUM 7.3 g/dL (6.4-8.2)
[2021-04-14] MEDS ORDERED: IOHEXOL-350 100 ML VIAL IV ONE (10:32)
[2021-04-14] MEDS ORDERED: IV NS 0.9% 250 ML IV ONE (10:32)
[2021-04-14] MEDS ORDERED: CT SWABBABLE VALVE TRANS SET 1 EA INFUS.SET MC ONE (10:32)
[2021-04-14 10:34] LABS: BILIRUBIN,URINE NEGATIVE (NEGATIVE); COLOR,URINE YELLOW (YELLOW); LEUKOCYTE ESTERASE ,URINE NEGATIVE (NEGATIVE); NITRITE, URINE NEGATIVE (NEGATIVE); PH,URINE 5.5 (5.0-8.0); PROTEIN,URINE NEGATIVE (NEGATIVE); UGLUCOSE NEGATIVE (NEGATIVE); UROBILINOGEN,URINE 0.2 EU/dL (0.2)
[2021-04-14 10:54] LABS: BACTERIA,URINE Moderate /HPF (None Seen); SQUAMOUS EPITHELIAL CELL,UR Few /HPF (None Seen); WBC,URINE NONE SEEN /HPF (0-3)
[2021-04-14] MEDS ORDERED: ONDA4TAB5 PO (12:44)
[2021-04-14 13:10] VITALS: BP 135/72
== END 2021-04-14 13:11 | disposition home or self-care (01) ==
LOC: ER 08:02
DX: R11.2 Nausea with vomiting, unspecified (principal); R10.11 Right upper quadrant pain; R55 Syncope and collapse; R51.9 Headache, unspecified; K76.0 Fatty (change of) liver, not elsewhere classified; Z20.822 Contact with and (suspected) exposure to COVID-19; E04.2 Nontoxic multinodular goiter; E11.65 Type 2 diabetes mellitus with hyperglycemia; I10 Essential (primary) hypertension; G47.33 Obstructive sleep apnea (adult) (pediatric); I48.0 Paroxysmal atrial fibrillation; Z79.899 Other long term (current) drug therapy
CPT/HCPCS: 36415; 70450; 70496; 70498; 71045; 76705; 80048; 80076; 81001; 83690; 84484; 85025; 87086; 87426; 93005; 96374; 99285; J2405; J7040; J7050; Q9967; C9803

== ENCOUNTER 2022-12-25 21:26 | Emergency (ER) | payer MEDICARE, OTHER ==
[~2022-12-25] VITALS: Ht 172.7 cm; Wt 74.8 kg
[~2022-12-25 21:26] MED LIST changes: +ONDA4TAB5 PO
[2022-12-25 22:20] VITALS: TEMP 99.3
[2022-12-25] MEDS ORDERED: LIDOCAINE VISCOUS 2% UD 15 ML UDC ONE (22:48)
[2022-12-25] MEDS ORDERED: MAG HYDROX/AL HYDROX/SIMETH 30 ML UDC ONE (22:48)
[2022-12-25] MEDS ORDERED: LIDOCAINE VISCOUS 2% UD 15 ML UDC MM ONE (23:00)
[2022-12-25] MEDS ORDERED: MAG HYDROX/AL HYDROX/SIMETH 30 ML UDC PO ONE (23:00)
[2022-12-26 00:14] VITALS: BP 138/66; O2SAT 98
== END 2022-12-26 00:17 | disposition home or self-care (01) ==
LOC: ER 21:29
DX: K21.9 Gastro-esophageal reflux disease without esophagitis (principal); I10 Essential (primary) hypertension; E11.9 Type 2 diabetes mellitus without complications; E66.9 Obesity, unspecified; Z79.899 Other long term (current) drug therapy
CPT/HCPCS: 70360-TC; 86403-TC